=== PATIENT | male | born 1995 | race Two or more races ===

== ENCOUNTER 2020-09-13 15:34 | Emergency (ER) | payer OTHER ==
[~2020-09-13] VITALS: Ht 180.3 cm; Wt 68.5 kg
== END 2020-09-13 18:57 | disposition home or self-care (01) ==
LOC: ER 15:34
DX: S80.02XA Contusion of left knee, initial encounter (principal); S80.01XA Contusion of right knee, initial encounter; W10.8XXA Fall (on) (from) other stairs and steps, initial encounter; Y93.89 Activity, other specified; Y92.89 Other specified places as the place of occurrence of the external cause; Y99.8 Other external cause status